=== PATIENT | male | born 1965 | race Caucasian/White ===

== ENCOUNTER 2017-10-17 15:46 | Emergency (ER) | payer OTHER ==
[~2017-10-17] VITALS: Ht 170.2 cm; Wt 81.1 kg
[2017-10-17 15:50] VITALS: TEMP 36.3; Ht 170.2 cm; Wt 81.1 kg
--- NOTE | 2017-10-17 16:37 | EMERGENCY ROOM VISIT NOTE ---
History Report prepared by Fabiola: Carla Morris Under the Supervision of: Dr. Dioni Santos M.D. First contact with patient: 15:57 Chief Complaint: SEIZURE Stated Complaint: REQUESTED MRI FOR SEIZURE/FALL, REF BY WESLY SALVADOR History of Present Illness The patient is a 52 year old white male with a past medical history of hypertension, seizure who presents to the ED with a cc of an episode of seizure last week. The patient was sent to the ED by his neurologist. He had his first seizure in 30 years last week. He hit his head in the fall. Positive tingling in hands and right foot. Negative neck pain, change in hearing or vision, weakness, change in bowel movement, urinary symptoms. No alcohol, tobacco, or drug use. He is on Dilantin. He is not on blood thinners. Per outside records, during his ER visit, he had an MRI concerning for possible hemorrhage. He was evaluated by neurosurgery who recommended MRI with and without contrast in 4 weeks. Source of History: patient Onset: last week Position: head Quality: other (seizure) Timing: other (episodic) Associated Symptoms: No neck pain, No urinary symptoms, No weakness Note: Pt reports tingling in hands and right foot. Review of Systems See HPI for pertinent positives and negatives. A total of ten systems were reviewed and were otherwise negative. Past Medical & Surgical Medical Problems: (1) Hypertension (2) Seizure Family History No pertinent family history stated. Social History Smoking Status: Never Smoker Marital Status: Housing Status: lives with family Current/Historical Medications Scheduled Gabapentin (Neurontin), 300 MG PO TID Lisinopril (Zestril), 40 MG PO QAM Phenytoin Sodium (Dilantin), 500 MG PO QAM Allergies Coded Allergies: No Known Allergies (Unverified , 10/17/17) Physical Exam Vital Signs Date Time Temp Pulse Resp B/P (MAP) Pulse Ox O2 Delivery O2 Flow Rate FiO2 10/17/17 20:07 70 139/85 96 Room Air 10/17/17 18:25 72 16 140/93 97 Room Air 10/17/17 17:17 77 10/17/17 16:55 77 16 136/90 96 Room Air 10/17/17 15:50 36.3 80 16 160/101 98 Room Air Physical Exam GENERAL: Awake, alert, well-appearing, NAD HENT: Normocephalic, atraumatic. EYES: Normal conjunctiva. Sclera non-icteric. PERRL. No anisocoria. NECK: Supple. No nuchal rigidity. FROM. No midline C spine TTP. RESPIRATORY: CTAB, no rhonchi, wheezing, crackles CARDIAC: RRR, no MRG ABDOMEN: Soft, NTND, BS+ MSK: No chest wall TTP, no LE edema NEURO: CN 2-12 intact, 5/5 upper and lower extremity strength, no dysmetria, no drift, good finger to nose. Tingling in the b/l UE and in the plantar surface of the right foot. Pain within the radial nerve dermatome in b/l hands. Finger count grossly normal. SKIN: No rash or jaundice noted. Medical Decision & Procedures ER Provider Diagnostic Interpretation: Radiology results as stated below per my review and radiologist interpretation: MRI OF THE BRAIN WITHOUT AND WITH IV CONTRAST CLINICAL HISTORY: Head trauma. Headache. Seizure. Bilateral hand tingling and burning. COMPARISON STUDY: No previous studies for comparison. TECHNIQUE: MRI of the brain was performed from the vertex to the skull base utilizing various T1 and T2 weighted sequences. Following the IV administration of 8 mL of Gadavist contrast, additional enhanced images were obtained. FINDINGS: Sagittal T1, axial diffusion, proton density and T2 weighted axial, coronal FLAIR, and pre and post axial T1-weighted images were acquired. These were supplemented with post gadolinium coronal T1 weighted images. There is a 31 mm area of edema involving the right temporal lobe. There is a trace right temporal subdural hematoma. There is increased T1 signal within the right temporal lobe consistent with areas of hemorrhage. There is minimal associated enhancement. An underlying neoplasm cannot be excluded. A short-term follow-up MRI study is recommended given the history of recent trauma. Axial diffusion-weighted images reveal no evidence of acute or subacute infarction. There is no evidence of ventricular dilatation. There are no abnormal flow voids. IMPRESSION: 1. 3 cm right temporal lobe lesion, possibly representing a hemorrhagic contusion given the history of recent trauma. 2. Trace right temporal subdural hematoma 3. There is minimal enhancement in the region of the right temporal lesion. As an underlying neoplasm cannot be excluded, a short-term 8 to 12 week follow-up MRI study without and with contrast is recommended. Electronically signed by: Pop Harris M.D. 10/17/2017 8:21 PM Dictated Date/Time: 10/17/2017 8:16 PM MRI CERVICAL SPINE COMBO CLINICAL HISTORY: Vertigo and tingling in hands and feet. History of trauma. History of seizure. TECHNIQUE: Sagittal and axial T1, T2 and STIR images were obtained. Images were acquired before and after the administration of 8 cc of intravenous Gadavist. COMPARISON STUDY: No previous studies for comparison. There are no suspicious areas of marrow replacement. No intrinsic cervical cord lesions are visualized. C2-3: There is a mild circumferential disc bulge. There is no significant spinal or foraminal stenosis C3-4: There is a circumferential disc bulge with mild spinal stenosis. There is no significant foraminal narrowing. C4-5: There is a circumferential disc bulge with moderate to severe spinal stenosis area there is bilateral foraminal stenosis. C5-6 :There are postsurgical changes of a spinal fusion. No disc herniations are visualized. There is no spinal or foraminal stenosis C6-7: There is a circumferential disc bulge with mild spinal stenosis. There is mild bilateral foraminal narrowing C7-T1: There is no evidence of disc bulge or focal herniation. There is no evidence of spinal or foraminal stenosis. Postcontrast images reveal no pathologically enhancing lesions. IMPRESSION: 1. Multilevel spondylitic changes 2. Postsurgical changes of a C5-6 spinal fusion 3. Moderate to severe spinal stenosis at the C4-5 level. Associated bilateral foraminal narrowing 4. Mild spinal stenosis at the C3-4 and C6-7 levels Electronically signed by: Pop Harris M.D. 10/17/2017 7:59 PM Dictated Date/Time: 10/17/2017 7:55 PM Laboratory Results 10/17/17 17:05 Red Blood Count 4.74, Mean Corpuscular Volume 85.9, Mean Corpuscular Hemoglobin 30.0, Mean Corpuscular Hemoglobin Concent 34.9, Mean Platelet Volume 9.0, Neutrophils (%) (Auto) 68.3, Lymphocytes (%) (Auto) 22.2, Monocytes (%) (Auto) 7.3, Eosinophils (%) (Auto) 1.8, Basophils (%) (Auto) 0.2, Neutrophils # (Auto) 4.21, Lymphocytes # (Auto) 1.37, Monocytes # (Auto) 0.45, Eosinophils # (Auto) 0.11, Basophils # (Auto) 0.01 10/17/17 17:05 Test 10/17/17 17:05 White Blood Count 6.16 K/uL (4.8-10.8) Red Blood Count 4.74 M/uL (4.7-6.1) Hemoglobin 14.2 g/dL (14.0-18.0) Hematocrit 40.7 % (42-52) Mean Corpuscular Volume 85.9 fL (80-100) Mean Corpuscular Hemoglobin 30.0 pg (25-34) Mean Corpuscular Hemoglobin Concent 34.9 g/dl (32-36) Platelet Count 211 K/uL (130-400) Mean Platelet Volume 9.0 fL (7.4-10.4) Neutrophils (%) (Auto) 68.3 % Lymphocytes (%) (Auto) 22.2 % Monocytes (%) (Auto) 7.3 % Eosinophils (%) (Auto) 1.8 % Basophils (%) (Auto) 0.2 % Neutrophils # (Auto) 4.21 K/uL (1.4-6.5) Lymphocytes # (Auto) 1.37 K/uL (1.2-3.4) Monocytes # (Auto) 0.45 K/uL (0.11-0.59) Eosinophils # (Auto) 0.11 K/uL (0-0.5) Basophils # (Auto) 0.01 K/uL (0-0.2) RDW Standard Deviation 41.6 fL (36.4-46.3) RDW Coefficient of Variation 13.1 % (11.5-14.5) Immature Granulocyte % (Auto) 0.2 % Immature Granulocyte # (Auto) 0.01 K/uL (0.00-0.02) Prothrombin Time 11.3 SECONDS (9.0-12.0) Prothromb Time International Ratio 1.1 (0.9-1.1) Activated Partial Thromboplast Time 26.8 SECONDS (21.0-31.0) Partial Thromboplastin Ratio 1.0 Anion Gap 6.0 mmol/L (3-11) Est Creatinine Clear Calc Drug Dose 95.7 ml/min Estimated GFR () 111.8 Estimated GFR (Non- 96.5 BUN/Creatinine Ratio 11.8 (10-20) Calcium Level 9.1 mg/dl (8.5-10.1) Total Bilirubin 0.4 mg/dl (0.2-1) Direct Bilirubin 0.1 mg/dl (0-0.2) Aspartate Amino Transf (AST/SGOT) 14 U/L (15-37) Alanine Aminotransferase (ALT/SGPT) 19 U/L (12-78) Alkaline Phosphatase 97 U/L (45-117) Total Protein 7.5 gm/dl (6.4-8.2) Albumin 4.1 gm/dl (3.4-5.0) Lipase 88 U/L (73-393) Phenytoin (Dilantin) Level 21.5 mcg/mL (10-20) Laboratory results reviewed by me Medications Administered Medications (Trade) Dose Ordered Sig/Carmela Route Start Time Stop Time Status Last Admin Dose Admin Acetaminophen (Tylenol Tab) 1,000 mg ONE STAT PO 10/17/17 18:24 10/17/17 18:25 DC 10/17/17 18:30 1,000 MG ED Course 1603: The patient was evaluated in room B11B. A complete history and physical exam was performed. 1820: I reevaluated the patient. I updated him on the lab results. He is complaining of a mild headache. 2019: I discussed the patient's case with Dr. Fernández, [facility] [place] orthopedic surgery. He recommends steroids and follow up on . 2024: I reevaluated the patient. I updated him on the results. project manager is setting up the follow up appointment. 2050: I discussed the patient's case with Dr. Hagen, [facility] [place]. He recommends follow up in the neurology trauma clinic. He is in agreement with the steroids. He sees to need to transfer. 2058: I reevaluated the patient. Discussed results and discharge instructions: He verbalized understanding and agreement. The patient is ready for discharge. Medical Decision Nursing notes reviewed. Ancillary studies and prior records reviewed. The patient is a 52 year old white male with a past medical history of hypertension, seizure who presents to the ED with a cc of an episode of seizure last week. Differential diagnosis: central cord syndrome, neuropathy, Patient was seen and evaluated the bedside. Patient recently had a seizure approximately several days ago on . It was a ground-level fall. The patient was seen and admitted at [facility]. The patient did have an MRI completed showed there was some abnormal signal in the inferior lateral right temporal lobe. There is concern for possible hemorrhagic lesion no obvious masses. The patient was deemed suitable for outpatient follow-up treatment at the time. The patient was discharged and seen in clinic today. There were concerns of possible central cord syndrome given the patient's complaints of some bilateral hand and feet tingling and pain. Patient does not take any blood thinners. Patient is on Dilantin. Patient did blood work completed along with an MRI of the brain and neck. Patient's blood work is unremarkable. Dilantin level was a touch high at 21. I did inform the patient the findings. He was complaining some mild dull headache. Patient was given Tylenol. Of note after reviewing prior records the patient had been seen and evaluated by neurosurgery at [facility] [place] was told have a repeat MRI with and without in 1 month's time. Patient's MRIs show that he does have significant spinal canal stenosis at C4- C5. He does have a prior history of effusion. This may be responsible for some of his paresthesias in his hands. The patient's repeat brain MRI did show small area concerning for hemorrhage that was consistent with his prior MRI. His subdural was noted which is noted on the previous MRI. I did speak with the on-call neurosurgeon who does not believe the patient needs to be transferred. He said steroids would be fine at this time. He also recommended having the patient follow-up in the neurotrauma clinic later in the month. Patient was informed of these findings. Case management did speak with the patient. Patient does require a referral in order to see Dr. Fernández with spinal surgery. He is going to make that arrangement and then will follow-up as an outpatient. Patient was deemed suitable for outpatient follow-up and treatment at this time. Patient was given strict follow-up, discharge, and return precautions. All questions were answered. Patient was deemed suitable for outpatient follow-up at this time. Patient agreed with the plan of care and was safely discharged home. Medication Reconcilliation Current Medication List: was personally reviewed by me Blood Pressure Screening Patient's blood pressure: Elevated blood pressure Blood pressure disposition: Elevated BP felt to be situational Consults Time Called: 2008 Consulting Physician: Dr. Fernández, [facility] [place] orthopedic surgery Returned Call: 2018 I discussed the patient's case with him. He recommends steroids and follow up on . Additional Consults: Time Called: 2036 Consulted Physician: Dr. Hagen, [facility] neurosurgery Returned Call: 2050 Additional Comments: I discussed the patient's case with him. He recommends follow up in the neurology trauma clinic. He is in agreement with the steroids. He sees to need to transfer. Impression Primary Impression: Spinal stenosis Additional Impressions: Brain contusion SDH (subdural hematoma) Scribe Attestation The scribe's documentation has been prepared under my direction and personally reviewed by me in its entirety. I confirm that the note above accurately reflects all work, treatment, procedures, and medical decision making performed by me. Departure Information Dispostion Home / Self-Care Referrals No Doctor, Assigned (PCP) Kasi Fernández D.O. Patient Instructions My [facility] Additional Instructions Please return to the emergency department if you have worsening or recurrent symptoms not amenable to at-home treatment. Please call for a follow-up appointment with her primary care physician. Please take your medications as prescribed. If you have other concerns and/or complaints please feel free to also call your primary care physician's office or return the ED for further evaluation, management, and treatment. You may take tylenol 1000 mg every 6 hours as needed for pain/fever unless told by your physician to not take it or have liver problems. Take your medications as prescribed. Please take your steroids preferably in the morning and with food as they may cause some upset stomach and cause you to be very awake and alert. Please take the steroids as prescribed by your neurologist. Please call [phone] to follow up w/ Dr. Hagen or one of his partners w/ Neurosurgery at [facility]. They are located in the [address] You have been examined and treated today on an emergency basis only. This is not a substitute for, or an effort to provide, complete comprehensive medical care. It is impossible to recognize and treat all injuries or illnesses in a single emergency department visit. It is therefore important that you follow up closely with [facility], your PCP, and/or your specialist(s). Call as soon as possible for an appointment. Thank you for your time and consideration. I look forward to speaking with you again soon. Please don't hesitate to call us if you have any questions. Problem Qualifiers Primary Impression: Spinal stenosis Spinal region: cervical Qualified Codes: M48.02 - Spinal stenosis, cervical region Additional Impressions: Brain contusion Encounter type: subsequent encounter Loss of consciousness presence/duration : with LOC of 30 min or less Qualified Codes: S06.2X1D - Diffuse traumatic brain injury with loss of consciousness of 30 minutes or less, subsequent encounter
[2017-10-17 17:16] LABS: BASO % 0.2 %; BASO ABS # 0.01 K/uL (0-0.2); EOS % 1.8 %; EOS ABS # 0.11 K/uL (0-0.5); HEMATOCRIT 40.7 % (42-52); HEMOGLOBIN 14.2 g/dL (14.0-18.0); IG# 0.01 K/uL (0.00-0.02); LYMPH % 22.2 %; LYMPH ABS # 1.37 K/uL (1.2-3.4); MEAN CELL VOLUME 85.9 fL (80-100); MEAN CORPUSCULAR HGB CONC 34.9 g/dl (32-36); MONO % 7.3 %; MONO ABS # 0.45 K/uL (0.11-0.59); NEUT % 68.3 %; NEUT ABS # 4.21 K/uL (1.4-6.5); PLATELET COUNT 211 K/uL (130-400); RED CELL DISTRIBUTION WIDTH CV 13.1 % (11.5-14.5); RED CELL DISTRIBUTION WIDTH SD 41.6 fL (36.4-46.3); WHITE BLOOD COUNT 6.16 K/uL (4.8-10.8)
[2017-10-17] MEDS ORDERED: LISI40TA PO (17:20)
[2017-10-17] MEDS ORDERED: PHN/100 PO (17:20)
[2017-10-17] MEDS ORDERED: GABA-113 PO (17:20)
[2017-10-17 17:24] LABS: INR 1.1 (0.9-1.1); PTT PATIENT 26.8 SECONDS (21.0-31.0)
[2017-10-17 17:40] LABS: ALBUMIN 4.1 gm/dl (3.4-5.0); CALCIUM 9.1 mg/dl (8.5-10.1); CREATININE 0.9 mg/dl (0.60-1.40); POTASSIUM 3.6 mmol/L (3.5-5.1)
[2017-10-17 17:43] LABS: TOTAL PROTEIN 7.5 gm/dl (6.4-8.2)
[2017-10-17] MEDS ORDERED: ACETAMINOPHEN 500 MG TAB PO STA (18:24)
[2017-10-17] MEDS ORDERED: GADAVIST IV PRN (20:00)
--- NOTE | 2017-10-17 20:00 | DIAGNOSTIC IMAGING REPORT ---
MRI CERVICAL SPINE COMBO CLINICAL HISTORY: Vertigo and tingling in hands and feet. History of trauma. History of seizure. TECHNIQUE: Sagittal and axial T1, T2 and STIR images were obtained. Images were acquired before and after the administration of 8 cc of intravenous Gadavist. COMPARISON STUDY: No previous studies for comparison. There are no suspicious areas of marrow replacement. No intrinsic cervical cord lesions are visualized. C2-3: There is a mild circumferential disc bulge. There is no significant spinal or foraminal stenosis C3-4: There is a circumferential disc bulge with mild spinal stenosis. There is no significant foraminal narrowing. C4-5: There is a circumferential disc bulge with moderate to severe spinal stenosis area there is bilateral foraminal stenosis. C5-6 :There are postsurgical changes of a spinal fusion. No disc herniations are visualized. There is no spinal or foraminal stenosis C6-7: There is a circumferential disc bulge with mild spinal stenosis. There is mild bilateral foraminal narrowing C7-T1: There is no evidence of disc bulge or focal herniation. There is no evidence of spinal or foraminal stenosis. Postcontrast images reveal no pathologically enhancing lesions. IMPRESSION: 1. Multilevel spondylitic changes 2. Postsurgical changes of a C5-6 spinal fusion 3. Moderate to severe spinal stenosis at the C4-5 level. Associated bilateral foraminal narrowing 4. Mild spinal stenosis at the C3-4 and C6-7 levels Electronically signed by: Pop Harris M.D. 10/17/2017 7:59 PM Dictated Date/Time: 10/17/2017 7:55 PM
--- NOTE | 2017-10-17 20:22 | DIAGNOSTIC IMAGING REPORT ---
MRI OF THE BRAIN WITHOUT AND WITH IV CONTRAST CLINICAL HISTORY: Head trauma. Headache. Seizure. Bilateral hand tingling and burning. COMPARISON STUDY: No previous studies for comparison. TECHNIQUE: MRI of the brain was performed from the vertex to the skull base utilizing various T1 and T2 weighted sequences. Following the IV administration of 8 mL of Gadavist contrast, additional enhanced images were obtained. FINDINGS: Sagittal T1, axial diffusion, proton density and T2 weighted axial, coronal FLAIR, and pre and post axial T1-weighted images were acquired. These were supplemented with post gadolinium coronal T1 weighted images. There is a 31 mm area of edema involving the right temporal lobe. There is a trace right temporal subdural hematoma. There is increased T1 signal within the right temporal lobe consistent with areas of hemorrhage. There is minimal associated enhancement. An underlying neoplasm cannot be excluded. A short-term follow-up MRI study is recommended given the history of recent trauma. Axial diffusion-weighted images reveal no evidence of acute or subacute infarction. There is no evidence of ventricular dilatation. There are no abnormal flow voids. IMPRESSION: 1. 3 cm right temporal lobe lesion, possibly representing a hemorrhagic contusion given the history of recent trauma. 2. Trace right temporal subdural hematoma 3. There is minimal enhancement in the region of the right temporal lesion. As an underlying neoplasm cannot be excluded, a short-term 8 to 12 week follow-up MRI study without and with contrast is recommended. Electronically signed by: Pop Harris M.D. 10/17/2017 8:21 PM Dictated Date/Time: 10/17/2017 8:16 PM
[2017-10-17] MEDS ORDERED: DEXAMETHASONE INJ 10 MG in SYRINGE 0 ML IV STA (20:58)
[2017-10-17] MEDS ORDERED: DEXAMETHASONE **PF** INJ 10 MG/ML VIAL ONE (21:22)
[2017-10-17 21:40] VITALS: BP 130/82; PULSE 71; O2SAT 97
== END 2017-10-17 21:40 | disposition home or self-care (01) ==
LOC: C.EDB 15:49
DX: S06.5X9A Traumatic subdural hemorrhage with loss of consciousness of unspecified duration, initial encounter (principal); W19.XXXA Unspecified fall, initial encounter; M48.02 Spinal stenosis, cervical region; R51 Headache; R56.9 Unspecified convulsions; I10 Essential (primary) hypertension